=== PATIENT | female | born 1950 | race Caucasian/White ===

== ENCOUNTER 2016-07-10 12:13 | Emergency (ER) | payer OTHER, MEDICARE ==
--- NOTE | 2016-07-10 12:49 | ER Document Report ---
ED Medical Screen (RME) - General Stated Complaint: BACK PAIN Time seen by provider: 12:44 Mode of Arrival: Wheelchair Information source: Patient Notes: 66-year-old female presents to ED excruciating left leg pain. She states she has had a MRI that shows 3 bulging disc. During the night about a week ago her dog was bit by something and she picked him up and put him in the car took him out of the car to the vet. Now both of her legs have been excruciating pain. She states she's been to the doctor multiple times about this pain. She states the doctor told her she needs surgery as she is trying to avoid surgery back on the therapy. States she started taken some medicine that she had left lying around oxycodone and hydrocodone and they didn't help either I have greeted and performed a rapid initial assessment of this patient. A comprehensive ED assessment and evaluation of the patient, analysis of test results and completion of medical decision making process will be conducted by an additional ED providers. Physical Exam - Vital signs Vitals: Temp Pulse Resp BP Pulse Ox 98.7 F 93 20 144/85 H 98 07/10/16 12:43 07/10/16 12:43 07/10/16 12:43 07/10/16 12:43 07/10/16 12:43 Course - Vital Signs Vital signs: Temp Pulse Resp BP Pulse Ox 98.7 F 93 20 144/85 H 98 07/10/16 12:43 07/10/16 12:43 07/10/16 12:43 07/10/16 12:43 07/10/16 12:43
[2016-07-10] MEDS ORDERED: HYDROMORPHONE HCL INJ/PF 2 MG/ML AMPULE IM ONE (16:45)
[2016-07-10] MEDS ORDERED: DEXAMETHASONE SOD PHOS INJ 10 MG/1 ML VIAL IM ONE (16:46)
--- NOTE | 2016-07-10 16:51 | ER Document Report ---
ED Extremity Problem, Lower - General Chief Complaint: Leg Pain Stated Complaint: BACK PAIN Time seen by provider: 16:46 Mode of Arrival: Wheelchair Information source: Patient Notes: This is a 66-year-old female with a history of sciatica who presents to the emergency room with an acute exacerbation of the sciatica for the past week. Patient states that she has been told that she requires surgery for L2/L3/L4 bulging disks in the past. She states she did well with physical therapy and medicines. She said that a week ago her dog was injured and she picked up her dog to bring it to the vet and that she has had back pain ever since. She denies any bladder or bowel dysfunction. Denies any fever or chills. She describes the pain is radiating down the left leg. She describes that as part of the workup for her discomfort, she did have a vascular ultrasound of the left lower extremity that was normal and an x-ray of the left hip that was normal. TRAVEL OUTSIDE OF THE [place] IN LAST 30 DAYS: No - HPI Patient complains to provider of: Pain Occurred: Last week Where: Home Onset/Duration: Gradual Quality of pain: Dull Severity: Moderate Pain Level: 4 Recent injury: Yes Associated symptoms: denies: Chest pain, Fainting, Sweaty, Weak Exacerbated by: Movement Relieved by: Nothing - Related Data Allergies/Adverse Reactions: No Known Allergies Allergy (Unverified 07/10/16 12:49) Past Medical History - General Information source: Patient - Social History Smoking Status: Never Smoker Cigarette use (# per day): No Chew tobacco use (# tins/day): No Frequency of alcohol use: None Drug Abuse: None Lives with: Alone Family History: Reviewed & Not Pertinent Patient has suicidal ideation: No Patient has homicidal ideation: No - Past Medical History Cardiac Medical History: Reports: None Pulmonary Medical History: Reports: None Endocrine Medical History: Reports: None Renal/ Medical History: Reports: None. Denies: Hx Peritoneal Dialysis Malignancy Medical History: Reports: None GI Medical History: Reports: None Musculoskeltal Medical History: Reports Hx Arthritis, Reports Other Skin Medical History: Reports None - Sciatica Psychiatric Medical History: Reports: None Traumatic Medical History: Reports: None Infectious Medical History: Reports: None Surgical Hx: Other - Noncontributory Review of Systems - Review of Systems Notes: Review of systems: Constitutional: Denies fever, chills. EENT: Denies ear pain, sinus tenderness, throat pain, throat swelling. Cardiovascular: Denies chest pain, palpitations, dyspnea or edema. Respiratory: Denies wheezing, cough, hemoptysis. Abdomen: Denies abdominal pain, nausea, vomiting, diarrhea. Denies BRBPR or melena. Genitourinary: Denies urinary retention, urinary incontinence, dysuria, pyuria, hematuria, flank pain. Musculoskeletal: See H&P Neurologic: See H&P. Denies headache, photophobia, neck stiffness, weakness. Denies loss of bowel or bladder function. Denies saddle anesthesia. Skin: Denies rash, lesions. Physical Exam - Vital signs Vitals: Temp Pulse Resp BP Pulse Ox 98.7 F 93 20 144/85 H 98 07/10/16 12:43 07/10/16 12:43 07/10/16 12:43 07/10/16 12:43 07/10/16 12:43 Notes: Physical exam: GENERAL: 66-year-old female, alert and oriented 3, no acute distress HEAD: Atraumatic, normocephalic. EYES: Pupils equal round and reactive to light, extraocular movements intact, sclera anicteric, conjunctiva are normal. ENT: Moist mucous membranes. NECK: Normal range of motion, supple LUNGS: Breath sounds clear to auscultation bilaterally and equal. No wheezes rales or rhonchi. HEART: Regular rate and rhythm without murmurs, rubs or gallops. ABDOMEN: Soft, normoactive bowel sounds. No tenderness to palpation. No guarding, no rebound. No masses appreciated. EXTREMITIES: Normal range of motion, no pitting or edema. No clubbing or cyanosis. NEUROLOGICAL: Cranial nerves II through XII grossly intact. Motor 5 over 5, patient does have a left lower extremity radiculopathy, distal cap refill is good, sensory is normal Normal speech, patient has a limp secondary to the pain. Otherwise her motor is good. PSYCH: Normal mood, normal affect. SKIN: Warm, Dry, normal turgor, no rashes or lesions noted. Course - Re-evaluation Re-evalutation: 07/10/16 19:05 - Vital Signs Vital signs: Temp Pulse Resp BP Pulse Ox 98.3 F 88 18 143/85 H 100 07/10/16 17:31 07/10/16 17:31 07/10/16 17:31 07/10/16 17:31 07/10/16 17:31 Discharge - Discharge Clinical Impression: sciatica Condition: Stable Disposition: HOME, SELF-CARE Instructions: Sciatica ([facility]), Oral Narcotic Medication ([facility]) Additional Instructions: Recommendations: I prescribed a sick Medrol Dosepak which is a steroid and a tapering dose over the next week. I prescribed Dilaudid which is a narcotic. See the narcotic instruction sheet. It is important to take a stool softener because the narcotic will cause constipation. Regarding your follow-up with Dr. Rosales of back surgery in [place]: Call the office tomorrow and asked them if they need a referral given your insurance. Section asked should be able to tell you when she knows what year insurance is. If you do need a referral, find out where your doctor should send the referral. Then, Call Dr. Hong's office for the referral and tell the customer service receptionist that it's a very important that it is done soon. If you can get a copy of the MRI on disc, this may help Dr Rosales in his decision- making process. He may require you to have an MRI after he sees you. In any event, if you can get a copy of the MRI on disc to show him, it may speed the process. Return to the ER for worsening pain, difficulty with bladder or bowel or any concerns he getting worse. Keep in mind, we do not have a back surgeon here. The back surgeons in this area are either at [facility] in [place] or [facility] in [place]. Prescriptions: Docusate Sodium [Colace 100 mg Capsule] 100 mg PO DAILY #30 capsule Hydromorphone HCl [Dilaudid 2 Mg Tablet] 2 mg PO Q6H PRN #30 tablet PRN Reason: for pain Methylprednisolone [Medrol 4 mg Dosepack 21 Tab/Pack] 4 mg PO ASDIR PRN #21 tab.ds.pk PRN Reason:
[2016-07-10 17:35] VITALS: BP 143/85
== END 2016-07-10 17:35 | disposition home or self-care (01) ==
LOC: ER 12:13
DX: M54.30 Sciatica, unspecified side (principal); M54.9 Dorsalgia, unspecified; M79.606 Pain in leg, unspecified
CPT/HCPCS: 99283; 96372; J1170; J1100